=== PATIENT | female | born 1955 | race Two or more races ===

== ENCOUNTER 2022-03-29 12:00 | Inpatient (IN) | payer OTHER ==
[~2022-03-29] VITALS: Ht 160 cm; Wt 72.1 kg
[2022-03-29] MEDS ORDERED: GLUMETZA500 MG PO (12:50)
[2022-03-29] MEDS ORDERED: HYDROCHLOROTH12.5 MG PO (12:51)
[2022-03-29] MEDS ORDERED: GLIMEPIRIDE2 M1 PO (12:51)
[2022-03-29] MEDS ORDERED: ALTACE10 MG PO (12:52)
[2022-03-29] MEDS ORDERED: CRESTOR40 MG PO (12:52)
[2022-03-29] MEDS ORDERED: RESTORIL30 M1 PO (12:52)
[2022-03-29] MEDS ORDERED: PEPCID AC20 MG PO (12:53)
[2022-03-29] MEDS ORDERED: PROTONIX20 MG PO (12:53)
[2022-04-04] MEDS ORDERED: MELOXICAM15 MG (16:04)
[2022-04-04] MEDS ORDERED: GABAPENTIN300 M2 (16:04)
== END 2022-04-07 10:56 | disposition home or self-care (01) | DRG 330 ==
LOC: O/R 04-04 09:00 → OB/GYN 04-04 09:00 → SURG 04-04 12:00 → OB/GYN 04-05 10:13
PROVIDERS: ADMIT Colon & Rectal Surgery; ATTEND Colon & Rectal Surgery
PROC: 0DBP4ZZ Excision of Rectum, Percutaneous Endoscopic Approach (ICD-10-PCS; 2022-04-04)
PROC: 0DJD8ZZ Inspection of Lower Intestinal Tract, Via Natural or Artificial Opening Endoscopic (ICD-10-PCS; 2022-04-04)
PROC: 3E0F7SF Introduction of Other Gas into Respiratory Tract, Via Natural or Artificial Opening (ICD-10-PCS; 2022-04-04)
PROC: 0DTN4ZZ Resection of Sigmoid Colon, Percutaneous Endoscopic Approach (ICD-10-PCS; principal; 2022-04-04 19:45)
DX: K57.32 Diverticulitis of large intestine without perforation or abscess without bleeding (principal); K92.1 Melena; K58.0 Irritable bowel syndrome with diarrhea; I11.9 Hypertensive heart disease without heart failure; E11.9 Type 2 diabetes mellitus without complications; G47.30 Sleep apnea, unspecified; F17.200 Nicotine dependence, unspecified, uncomplicated; Z79.84 Long term (current) use of oral hypoglycemic drugs